=== PATIENT | female | born 1940 | race Caucasian/White ===

== ENCOUNTER 2020-09-03 08:41 | Inpatient (IN) ==
[2020-09-03] MEDS ORDERED: hydroCHLOROthiazide 25 MG TABLET PO PRN (13:54)
[2020-09-03] MEDS: Sucralfate 1 GM TABLET PO SCH ×2 (19:07→20:20)
[2020-09-03] MEDS: *HR* Glimepiride 4 MG TABLET PO SCH (20:19)
[2020-09-03] MEDS: *HR* OxyCODONE/APAP 5/325 TABLET PO PRN (20:19)
[2020-09-03] MEDS: Mirtazapine 15 MG TABLET PO PRN (20:21)
[2020-09-04] MEDS: *HR* OxyCODONE/APAP 5/325 TABLET PO PRN ×2 (03:08→16:10)
[2020-09-04] MEDS: *HR* Enoxaparin 40 MG/0.4 ML SYRINGE SQ SCH (05:09)
[2020-09-04 05:40] LABS: Basophils % 0.2 %; Eosinophils # 0.4 K/mcL (0.0-0.6); Eosinophils % 4.3 %; Hematocrit 27.5 % (35.3-44.9); Hemoglobin 8.8 g/dL (11.5-15.4); Immature Granulocytes % 0.7 % (0-4); Lymphocytes # 2.2 K/mcL (0.6-4.6); Lymphocytes % 23.6 %; Mean Corpuscular Hemoglobin 25.5 pg (28.0-33.3); Mean Corpuscular Volume 79.7 fL (83.0-100.0); Mean Platelet Volume 10.4 fL (9.4-12.4); Monocytes % 11.2 %; Neutrophils # 5.5 K/mcL (1.6-8.9); Platelet Count 340 K/mcL (140-400); Red Blood Count 3.45 M/mcL (3.82-4.97); Red Cell Distribution Width 15.7 % (11.5-14.5); White Blood Count 9.1 K/mcL (4.3-11.1)
[2020-09-04 05:54] LABS: BUN/Creatinine Ratio 20 (6-26); Blood Urea Nitrogen 18 mg/dL (8-23); Calcium 8.3 mg/dL (8.6-10.3); Carbon Dioxide 31 mEq/L (23-29); Chloride 91 mEq/L (98-107); Glucose 206 mg/dL (70-105); Osmolality,Calculated 274 (280-300); Sodium 128 mEq/L (136-145); eGFR For African Americans > 60 (> 60); eGFR For Non-African Americans 59 (> 60)
[2020-09-04 06:06] LABS: Potassium 4.2 mEq/L (3.5-5.1)
[2020-09-04] MEDS: Sucralfate 1 GM TABLET PO SCH ×2 (08:02→20:00)
[2020-09-04] MEDS: VIT A PO SCH (08:10)
[2020-09-04] MEDS: *HR* Metformin 500 MG TABLET PO SCH (08:10)
[2020-09-04] MEDS: Loratadine 10 MG TABLET PO SCH (08:10)
[2020-09-04] MEDS: VIT C PO SCH (08:10)
[2020-09-04] MEDS: COPPER PO SCH (08:10)
[2020-09-04] MEDS: *HR* Glimepiride 4 MG TABLET PO SCH ×2 (08:10→19:57)
[2020-09-04] MEDS: ZINC PO SCH (08:10)
[2020-09-04] MEDS: VIT E PO SCH (08:10)
[2020-09-04] MEDS: Aspirin Enteric Coated 81 MG Tablet PO SCH (08:10)
[2020-09-04] MEDS: polyethylene glycoL 3350 17 GM POWD.PACK PO PRN (18:04)
[2020-09-04] MEDS: Mirtazapine 15 MG TABLET PO PRN (19:57)
[2020-09-05] MEDS: *HR* OxyCODONE/APAP 5/325 TABLET PO PRN ×3 (02:56→22:25)
[2020-09-05] MEDS: *HR* Enoxaparin 40 MG/0.4 ML SYRINGE SQ SCH (05:32)
[2020-09-05 06:09] LABS: BUN/Creatinine Ratio 18 (6-26); Blood Urea Nitrogen 17 mg/dL (8-23); Calcium 8.3 mg/dL (8.6-10.3); Carbon Dioxide 33 mEq/L (23-29); Chloride 91 mEq/L (98-107); Glucose 223 mg/dL (70-105); Osmolality,Calculated 276 (280-300); Potassium 4.4 mEq/L (3.5-5.1); Sodium 129 mEq/L (136-145); eGFR For African Americans > 60 (> 60); eGFR For Non-African Americans 59 (> 60)
[2020-09-05] MEDS: *HR* Metformin 500 MG TABLET PO SCH (08:40)
[2020-09-05] MEDS: *HR* Glimepiride 4 MG TABLET PO SCH ×2 (08:40→22:25)
[2020-09-05] MEDS: Sucralfate 1 GM TABLET PO SCH ×2 (08:41→22:28)
[2020-09-05] MEDS: ZINC PO SCH ×2 (08:41→22:28)
[2020-09-05] MEDS: Aspirin Enteric Coated 81 MG Tablet PO SCH (08:41)
[2020-09-05] MEDS: VIT C PO SCH ×2 (08:41→22:28)
[2020-09-05] MEDS: COPPER PO SCH ×2 (08:41→22:28)
[2020-09-05] MEDS: VIT A PO SCH ×2 (08:41→22:28)
[2020-09-05] MEDS: VIT E PO SCH ×2 (08:41→22:28)
[2020-09-05] MEDS: Loratadine 10 MG TABLET PO SCH (08:41)
[2020-09-05] MEDS ORDERED: *HR* Dextrose 50 % in Water (Vial) 50 ML VIAL IVP PRN (11:33)
[2020-09-05] MEDS ORDERED: D5% in Water 1,000 ML IVC PRN (11:33)
[2020-09-05] MEDS ORDERED: Dextrose Gel 15 GM/37.5 ML TUBE PO PRN ×2 (11:33)
[2020-09-05] MEDS ORDERED: Bisacodyl 10 MG RECTAL SUPPOSITORY RC PRN (12:18)
[2020-09-05] MEDS: Insulin LISPRO 300 UNITS/3 ML VIAL SUBQ SCH ×2 (12:21→17:07)
[2020-09-05] MEDS ORDERED: Insulin LISPRO 300 UNITS/3 ML VIAL SUBQ SCH (21:00)
[2020-09-05] MEDS: Mirtazapine 15 MG TABLET PO PRN (22:24)
[2020-09-05] MEDS: Nystatin POWDER 30 GM BOTTLE TP SCH (22:30)
[2020-09-06] MEDS: *HR* OxyCODONE/APAP 5/325 TABLET PO PRN ×3 (04:15→16:55)
[2020-09-06] MEDS: *HR* Enoxaparin 40 MG/0.4 ML SYRINGE SQ SCH (04:17)
[2020-09-06 05:04] LABS: Basophils % 0.3 %; Eosinophils # 0.7 K/mcL (0.0-0.6); Eosinophils % 6.4 %; Hematocrit 27.5 % (35.3-44.9); Hemoglobin 8.7 g/dL (11.5-15.4); Immature Granulocytes % 0.7 % (0-4); Lymphocytes # 3.5 K/mcL (0.6-4.6); Lymphocytes % 30.2 %; Mean Corpuscular HGB Conc 31.6 g/dL (31.6-35.5); Mean Corpuscular Hemoglobin 25.7 pg (28.0-33.3); Mean Corpuscular Volume 81.4 fL (83.0-100.0); Monocytes # 1.1 K/mcL (0.0-1.3); Monocytes % 9.8 %; Neutrophils # 6.1 K/mcL (1.6-8.9); Platelet Count 362 K/mcL (140-400); Red Blood Count 3.38 M/mcL (3.82-4.97); Segmented Neutrophils % 52.6 %; White Blood Count 11.5 K/mcL (4.3-11.1)
[2020-09-06 05:18] LABS: BUN/Creatinine Ratio 18 (6-26); Blood Urea Nitrogen 17 mg/dL (8-23); Calcium 8.6 mg/dL (8.6-10.3); Carbon Dioxide 33 mEq/L (23-29); Chloride 90 mEq/L (98-107); Glucose 185 mg/dL (70-105); Osmolality,Calculated 272 (280-300); Potassium 4.3 mEq/L (3.5-5.1); Sodium 128 mEq/L (136-145); eGFR For African Americans > 60 (> 60); eGFR For Non-African Americans 57 (> 60)
[2020-09-06] MEDS: *HR* Glimepiride 4 MG TABLET PO SCH ×2 (07:44→20:21)
[2020-09-06] MEDS: Sucralfate 1 GM TABLET PO SCH ×2 (07:44→20:22)
[2020-09-06] MEDS: Aspirin Enteric Coated 81 MG Tablet PO SCH (07:44)
[2020-09-06] MEDS: *HR* Metformin 500 MG TABLET PO SCH ×2 (07:44→16:55)
[2020-09-06] MEDS: Loratadine 10 MG TABLET PO SCH (07:44)
[2020-09-06] MEDS: ZINC PO SCH ×2 (07:45→20:22)
[2020-09-06] MEDS: VIT E PO SCH ×2 (07:45→20:22)
[2020-09-06] MEDS: VIT A PO SCH ×2 (07:45→20:22)
[2020-09-06] MEDS: COPPER PO SCH ×2 (07:45→20:22)
[2020-09-06] MEDS: VIT C PO SCH ×2 (07:45→20:22)
[2020-09-06] MEDS: Insulin LISPRO 300 UNITS/3 ML VIAL SUBQ SCH ×3 (07:47→20:23)
[2020-09-06] MEDS: Nystatin POWDER 30 GM BOTTLE TP SCH ×2 (10:46→20:22)
[2020-09-06] MEDS: Mirtazapine 15 MG TABLET PO PRN (22:33)
[2020-09-07] MEDS: *HR* OxyCODONE/APAP 5/325 TABLET PO PRN ×3 (03:56→21:52)
[2020-09-07] MEDS: *HR* Enoxaparin 40 MG/0.4 ML SYRINGE SQ SCH (03:57)
[2020-09-07] MEDS: Insulin LISPRO 300 UNITS/3 ML VIAL SUBQ SCH ×5 (07:30→19:37)
[2020-09-07] MEDS: Aspirin Enteric Coated 81 MG Tablet PO SCH (08:03)
[2020-09-07] MEDS: Sucralfate 1 GM TABLET PO SCH ×2 (08:03→19:36)
[2020-09-07] MEDS: *HR* Glimepiride 4 MG TABLET PO SCH ×2 (08:04→19:36)
[2020-09-07] MEDS: Loratadine 10 MG TABLET PO SCH (08:04)
[2020-09-07] MEDS: Nystatin POWDER 30 GM BOTTLE TP SCH ×2 (08:06→21:53)
[2020-09-07] MEDS: *HR* Metformin 500 MG TABLET PO SCH ×2 (08:07→17:45)
[2020-09-07] MEDS: COPPER PO SCH ×2 (08:07→19:39)
[2020-09-07] MEDS: VIT A PO SCH ×2 (08:07→19:39)
[2020-09-07] MEDS: ZINC PO SCH ×2 (08:07→19:39)
[2020-09-07] MEDS: VIT E PO SCH ×2 (08:07→19:39)
[2020-09-07] MEDS: VIT C PO SCH ×2 (08:07→19:39)
[2020-09-07] MEDS: Mirtazapine 15 MG TABLET PO PRN (21:52)
[2020-09-08] MEDS: *HR* Enoxaparin 40 MG/0.4 ML SYRINGE SQ SCH (06:12)
[2020-09-08] MEDS: *HR* OxyCODONE/APAP 5/325 TABLET PO PRN ×2 (06:13→21:56)
[2020-09-08] MEDS: Insulin LISPRO 300 UNITS/3 ML VIAL SUBQ SCH ×4 (08:02→20:33)
[2020-09-08] MEDS: Aspirin Enteric Coated 81 MG Tablet PO SCH (08:03)
[2020-09-08] MEDS: Nystatin POWDER 30 GM BOTTLE TP SCH ×2 (08:05→21:58)
[2020-09-08] MEDS: *HR* Metformin 500 MG TABLET PO SCH ×2 (08:05→15:59)
[2020-09-08] MEDS: Loratadine 10 MG TABLET PO SCH (08:05)
[2020-09-08] MEDS: *HR* Glimepiride 4 MG TABLET PO SCH ×2 (08:05→20:33)
[2020-09-08] MEDS: Sucralfate 1 GM TABLET PO SCH ×2 (08:05→20:33)
[2020-09-08] MEDS: VIT C PO SCH ×2 (08:06→20:34)
[2020-09-08] MEDS: ZINC PO SCH ×2 (08:06→20:34)
[2020-09-08] MEDS: VIT A PO SCH ×2 (08:06→20:34)
[2020-09-08] MEDS: COPPER PO SCH ×2 (08:06→20:34)
[2020-09-08] MEDS: VIT E PO SCH ×2 (08:06→20:34)
[2020-09-08] MEDS: Mirtazapine 15 MG TABLET PO PRN (21:57)
[2020-09-09] MEDS: *HR* Enoxaparin 40 MG/0.4 ML SYRINGE SQ SCH (05:32)
[2020-09-09] MEDS: Sucralfate 1 GM TABLET PO SCH ×4 (05:32→19:50)
[2020-09-09 06:13] LABS: Hematocrit 27.1 % (35.3-44.9); Hemoglobin 8.4 g/dL (11.5-15.4); Mean Corpuscular Hemoglobin 25.2 pg (28.0-33.3); Mean Corpuscular Volume 81.4 fL (83.0-100.0); Mean Platelet Volume 9.9 fL (9.4-12.4); Platelet Count 406 K/mcL (140-400); Red Blood Count 3.33 M/mcL (3.82-4.97); Red Cell Distribution Width 16.4 % (11.5-14.5); White Blood Count 10.7 K/mcL (4.3-11.1)
[2020-09-09 06:48] LABS: Alanine Aminotransferase 62 Units/L (7-52); Albumin 3.2 g/dL (3.5-5.7); Albumin/Globulin Ratio 1.3 (1.1-2.2); Alkaline Phosphatase 105 Units/L (34-104); Aspartate Amino Transferase 13 Units/L (13-39); BUN/Creatinine Ratio 16 (6-26); Bilirubin,Total 0.8 mg/dL (0.3-1.0); Blood Urea Nitrogen 14 mg/dL (8-23); Calcium 8.5 mg/dL (8.6-10.3); Carbon Dioxide 30 mEq/L (23-29); Chloride 91 mEq/L (98-107); Globulin 2.5 g/dL (2.4-3.5); Glucose 168 mg/dL (70-105); Magnesium 1.6 mg/dL (1.6-2.6); Osmolality,Calculated 270 (280-300); Potassium 3.9 mEq/L (3.5-5.1); Sodium 128 mEq/L (136-145); Total Protein 5.7 g/dL (6.4-8.9); eGFR For African Americans > 60 (> 60); eGFR For Non-African Americans > 60 (> 60)
[2020-09-09] MEDS: Aspirin Enteric Coated 81 MG Tablet PO SCH (07:49)
[2020-09-09] MEDS: *HR* Metformin 500 MG TABLET PO SCH ×2 (07:49→17:33)
[2020-09-09] MEDS: ZINC PO SCH ×2 (07:50→19:50)
[2020-09-09] MEDS: Loratadine 10 MG TABLET PO SCH (07:50)
[2020-09-09] MEDS: Nystatin POWDER 30 GM BOTTLE TP SCH ×2 (07:50→23:49)
[2020-09-09] MEDS: COPPER PO SCH ×2 (07:50→19:50)
[2020-09-09] MEDS: VIT E PO SCH ×2 (07:50→19:50)
[2020-09-09] MEDS: *HR* Glimepiride 4 MG TABLET PO SCH ×2 (07:50→19:50)
[2020-09-09] MEDS: VIT C PO SCH ×2 (07:50→19:50)
[2020-09-09] MEDS: VIT A PO SCH ×2 (07:50→19:50)
[2020-09-09] MEDS: Insulin LISPRO 300 UNITS/3 ML VIAL SUBQ SCH ×4 (07:50→23:49)
[2020-09-09] MEDS: Mirtazapine 15 MG TABLET PO PRN (23:48)
[2020-09-09] MEDS: *HR* OxyCODONE/APAP 5/325 TABLET PO PRN (23:48)
[2020-09-10] MEDS: Sucralfate 1 GM TABLET PO SCH ×4 (06:22→21:43)
[2020-09-10] MEDS: *HR* Enoxaparin 40 MG/0.4 ML SYRINGE SQ SCH (06:28)
[2020-09-10] MEDS: Insulin LISPRO 300 UNITS/3 ML VIAL SUBQ SCH ×4 (08:59→21:46)
[2020-09-10] MEDS: *HR* Metformin 500 MG TABLET PO SCH ×2 (09:22→17:43)
[2020-09-10] MEDS: Loratadine 10 MG TABLET PO SCH (09:22)
[2020-09-10] MEDS: VIT A PO SCH ×2 (09:23→21:44)
[2020-09-10] MEDS: COPPER PO SCH ×2 (09:23→21:44)
[2020-09-10] MEDS: *HR* Glimepiride 4 MG TABLET PO SCH ×2 (09:23→21:38)
[2020-09-10] MEDS: VIT E PO SCH ×2 (09:23→21:44)
[2020-09-10] MEDS: Nystatin POWDER 30 GM BOTTLE TP SCH ×2 (09:23→21:48)
[2020-09-10] MEDS: ZINC PO SCH ×2 (09:23→21:44)
[2020-09-10] MEDS: VIT C PO SCH ×2 (09:23→21:44)
[2020-09-10] MEDS: Aspirin Enteric Coated 81 MG Tablet PO SCH (09:23)
[2020-09-10] MEDS: *HR* OxyCODONE/APAP 5/325 TABLET PO PRN (21:42)
[2020-09-10] MEDS: Mirtazapine 15 MG TABLET PO PRN (22:05)
[2020-09-11] MEDS: *HR* Enoxaparin 40 MG/0.4 ML SYRINGE SQ SCH (06:30)
[2020-09-11] MEDS: Sucralfate 1 GM TABLET PO SCH ×4 (06:30→20:17)
[2020-09-11] MEDS: Aspirin Enteric Coated 81 MG Tablet PO SCH (09:19)
[2020-09-11] MEDS: *HR* Glimepiride 4 MG TABLET PO SCH ×2 (09:19→20:17)
[2020-09-11] MEDS: Loratadine 10 MG TABLET PO SCH (09:19)
[2020-09-11] MEDS: *HR* Metformin 500 MG TABLET PO SCH ×2 (09:19→18:22)
[2020-09-11] MEDS: Insulin LISPRO 300 UNITS/3 ML VIAL SUBQ SCH ×4 (09:20→20:17)
[2020-09-11] MEDS: Nystatin POWDER 30 GM BOTTLE TP SCH ×2 (09:20→23:22)
[2020-09-11] MEDS: ZINC PO SCH ×2 (09:22→20:17)
[2020-09-11] MEDS: COPPER PO SCH ×2 (09:22→20:17)
[2020-09-11] MEDS: VIT E PO SCH ×2 (09:22→20:17)
[2020-09-11] MEDS: VIT C PO SCH ×2 (09:22→20:17)
[2020-09-11] MEDS: VIT A PO SCH ×2 (09:22→20:17)
[2020-09-11] MEDS: Mirtazapine 15 MG TABLET PO PRN (23:05)
[2020-09-11] MEDS: *HR* OxyCODONE/APAP 5/325 TABLET PO PRN (23:05)
[2020-09-12] MEDS: *HR* Enoxaparin 40 MG/0.4 ML SYRINGE SQ SCH (04:18)
[2020-09-12] MEDS: Sucralfate 1 GM TABLET PO SCH ×4 (04:18→19:47)
[2020-09-12] MEDS: *HR* Metformin 500 MG TABLET PO SCH ×2 (07:55→17:34)
[2020-09-12] MEDS: Loratadine 10 MG TABLET PO SCH (07:55)
[2020-09-12] MEDS: Aspirin Enteric Coated 81 MG Tablet PO SCH (07:55)
[2020-09-12] MEDS: *HR* Glimepiride 4 MG TABLET PO SCH ×2 (07:56→19:45)
[2020-09-12] MEDS: VIT A PO SCH ×2 (07:56→19:46)
[2020-09-12] MEDS: ZINC PO SCH ×2 (07:56→19:46)
[2020-09-12] MEDS: VIT C PO SCH ×2 (07:56→19:46)
[2020-09-12] MEDS: VIT E PO SCH ×2 (07:56→19:46)
[2020-09-12] MEDS: Nystatin POWDER 30 GM BOTTLE TP SCH ×2 (07:56→22:31)
[2020-09-12] MEDS: COPPER PO SCH ×2 (07:56→19:46)
[2020-09-12] MEDS: Insulin LISPRO 300 UNITS/3 ML VIAL SUBQ SCH ×4 (07:57→22:17)
[2020-09-12] MEDS: Mirtazapine 15 MG TABLET PO PRN (22:16)
[2020-09-13] MEDS: *HR* Enoxaparin 40 MG/0.4 ML SYRINGE SQ SCH (05:11)
[2020-09-13] MEDS: Sucralfate 1 GM TABLET PO SCH ×3 (05:11→20:18)
[2020-09-13] MEDS: *HR* Metformin 500 MG TABLET PO SCH ×2 (07:43→17:08)
[2020-09-13] MEDS: ZINC PO SCH ×2 (07:44→20:17)
[2020-09-13] MEDS: *HR* Glimepiride 4 MG TABLET PO SCH ×2 (07:44→20:17)
[2020-09-13] MEDS: VIT E PO SCH ×2 (07:44→20:17)
[2020-09-13] MEDS: VIT C PO SCH ×2 (07:44→20:17)
[2020-09-13] MEDS: COPPER PO SCH ×2 (07:44→20:17)
[2020-09-13] MEDS: Loratadine 10 MG TABLET PO SCH (07:44)
[2020-09-13] MEDS: VIT A PO SCH ×2 (07:44→20:17)
[2020-09-13] MEDS: Aspirin Enteric Coated 81 MG Tablet PO SCH (07:44)
[2020-09-13] MEDS: Insulin LISPRO 300 UNITS/3 ML VIAL SUBQ SCH ×4 (07:51→20:18)
[2020-09-13] MEDS: Nystatin POWDER 30 GM BOTTLE TP SCH ×2 (07:52→23:02)
[2020-09-13] MEDS: polyethylene glycoL 3350 17 GM POWD.PACK PO PRN (12:36)
[2020-09-13] MEDS: Mirtazapine 15 MG TABLET PO PRN (23:02)
[2020-09-14] MEDS: *HR* Enoxaparin 40 MG/0.4 ML SYRINGE SQ SCH (05:56)
[2020-09-14] MEDS: Sucralfate 1 GM TABLET PO SCH ×4 (05:56→21:23)
[2020-09-14] MEDS: Loratadine 10 MG TABLET PO SCH (07:56)
[2020-09-14] MEDS: Aspirin Enteric Coated 81 MG Tablet PO SCH (07:56)
[2020-09-14] MEDS: *HR* Metformin 500 MG TABLET PO SCH ×2 (07:56→16:58)
[2020-09-14] MEDS: *HR* Glimepiride 4 MG TABLET PO SCH ×2 (07:56→21:22)
[2020-09-14] MEDS: Nystatin POWDER 30 GM BOTTLE TP SCH ×3 (07:58→21:25)
[2020-09-14] MEDS: VIT A PO SCH ×2 (07:58→21:23)
[2020-09-14] MEDS: VIT C PO SCH ×2 (07:58→21:23)
[2020-09-14] MEDS: VIT E PO SCH ×2 (07:58→21:23)
[2020-09-14] MEDS: ZINC PO SCH ×2 (07:58→21:23)
[2020-09-14] MEDS: COPPER PO SCH ×2 (07:58→21:23)
[2020-09-14] MEDS: Insulin LISPRO 300 UNITS/3 ML VIAL SUBQ SCH ×4 (08:00→21:23)
[2020-09-14 14:22] LABS: Basophils % 0.2 %; Eosinophils # 0.4 K/mcL (0.0-0.6); Eosinophils % 3.3 %; Hematocrit 28.2 % (35.3-44.9); Hemoglobin 8.9 g/dL (11.5-15.4); Immature Granulocytes % 0.3 % (0-4); Lymphocytes # 2.2 K/mcL (0.6-4.6); Lymphocytes % 20.7 %; Mean Corpuscular HGB Conc 31.6 g/dL (31.6-35.5); Mean Corpuscular Hemoglobin 25.6 pg (28.0-33.3); Mean Corpuscular Volume 81.3 fL (83.0-100.0); Mean Platelet Volume 9.1 fL (9.4-12.4); Monocytes # 0.8 K/mcL (0.0-1.3); Monocytes % 7.5 %; Neutrophils # 7.3 K/mcL (1.6-8.9); Platelet Count 492 K/mcL (140-400); Red Blood Count 3.47 M/mcL (3.82-4.97); Red Cell Distribution Width 16.2 % (11.5-14.5); White Blood Count 10.7 K/mcL (4.3-11.1)
[2020-09-14 14:34] LABS: BUN/Creatinine Ratio 20 (6-26); Blood Urea Nitrogen 17 mg/dL (8-23); Calcium 8.8 mg/dL (8.6-10.3); Carbon Dioxide 30 mEq/L (23-29); Chloride 91 mEq/L (98-107); Glucose 186 mg/dL (70-105); Osmolality,Calculated 272 (280-300); Potassium 4.3 mEq/L (3.5-5.1); Sodium 128 mEq/L (136-145); eGFR For African Americans > 60 (> 60); eGFR For Non-African Americans > 60 (> 60)
[2020-09-14] MEDS: Mirtazapine 15 MG TABLET PO PRN (21:23)
[2020-09-14] MEDS: *HR* OxyCODONE/APAP 5/325 TABLET PO PRN (21:46)
[2020-09-15] MEDS: *HR* Enoxaparin 40 MG/0.4 ML SYRINGE SQ SCH (05:47)
[2020-09-15] MEDS: Sucralfate 1 GM TABLET PO SCH ×2 (05:48→12:28)
[2020-09-15 07:03] VITALS: BP 142/84
[2020-09-15] MEDS: Insulin LISPRO 300 UNITS/3 ML VIAL SUBQ SCH ×2 (08:12→12:28)
[2020-09-15] MEDS: *HR* Metformin 500 MG TABLET PO SCH (08:14)
[2020-09-15] MEDS: *HR* Glimepiride 4 MG TABLET PO SCH (08:14)
[2020-09-15] MEDS: Aspirin Enteric Coated 81 MG Tablet PO SCH (08:14)
[2020-09-15] MEDS: Loratadine 10 MG TABLET PO SCH (08:15)
[2020-09-15] MEDS: VIT C PO SCH (08:16)
[2020-09-15] MEDS: ZINC PO SCH (08:16)
[2020-09-15] MEDS: VIT E PO SCH (08:16)
[2020-09-15] MEDS: COPPER PO SCH (08:16)
[2020-09-15] MEDS: VIT A PO SCH (08:16)
[2020-09-15] MEDS: Nystatin POWDER 30 GM BOTTLE TP SCH (08:16)
== END 2020-09-15 13:45 | disposition home health service (06) | DRG 560 ==
LOC: INPGRE 18:01
PROVIDERS: ADMIT Family Medicine; ATTEND Family Medicine

== ENCOUNTER 2020-10-19 10:52 | Observation (INO) ==
[2020-10-19] MEDS ORDERED: Furosemide 20 MG/2 ML VIAL IVP ONE (11:18)
[2020-10-19 11:24] LABS: Basophils % 0.2 %; Eosinophils # 0.3 K/mcL (0.0-0.6); Eosinophils % 3.5 %; Hematocrit 36.3 % (35.3-44.9); Hemoglobin 10.9 g/dL (11.5-15.4); Immature Granulocytes % 0.2 % (0-4); Lymphocytes % 22.8 %; Mean Corpuscular Hemoglobin 24.9 pg (28.0-33.3); Mean Corpuscular Volume 83.1 fL (83.0-100.0); Monocytes # 0.7 K/mcL (0.0-1.3); Monocytes % 8.1 %; Neutrophils # 5.6 K/mcL (1.6-8.9); Platelet Count 384 K/mcL (140-400); Red Blood Count 4.37 M/mcL (3.82-4.97); Segmented Neutrophils % 65.2 %; White Blood Count 8.6 K/mcL (4.3-11.1)
[2020-10-19 11:30] LABS: INR 1.4; Prothrombin Time 15.5 Seconds (9.4-12.1)
[2020-10-19 11:33] LABS: Activated Partial Thrombo Time 34.5 Seconds (26.0-36.0)
[2020-10-19 11:39] LABS: BUN/Creatinine Ratio 15 (6-26); Blood Urea Nitrogen 14 mg/dL (8-23); Calcium 8.7 mg/dL (8.6-10.3); Carbon Dioxide 28 mEq/L (23-29); Chloride 98 mEq/L (98-107); Glucose 136 mg/dL (70-105); Osmolality,Calculated 285 (280-300); Potassium 4.2 mEq/L (3.5-5.1); Sodium 136 mEq/L (136-145); eGFR For African Americans > 60 (> 60); eGFR For Non-African Americans 58 (> 60)
[2020-10-19 11:43] LABS: Troponin I < 0.03 ng/mL (< 0.04)
[2020-10-19] MEDS ORDERED: Sucralfate 1 GM TABLET PO PRN (16:06)
[2020-10-19] MEDS ORDERED: Dextrose Gel 15 GM/37.5 ML TUBE PO PRN ×2 (16:16)
[2020-10-19] MEDS ORDERED: *HR* Dextrose 50 % in Water (Vial) 50 ML VIAL IVP PRN (16:16)
[2020-10-19] MEDS ORDERED: D5% in Water 1,000 ML IVC PRN (16:16)
[2020-10-19] MEDS: Insulin LISPRO 300 UNITS/3 ML VIAL SUBQ SCH ×2 (18:20→20:45)
[2020-10-19] MEDS: Furosemide 20 MG TABLET PO SCH (18:41)
[2020-10-19] MEDS: *HR* Glimepiride 4 MG TABLET PO SCH (18:41)
[2020-10-19] MEDS: Apixaban 5 MG TABLET PO SCH ×2 (20:37→20:38)
[2020-10-19] MEDS: 0.9 % Sodium Chloride 250 ML IVC SCH (20:38)
[2020-10-19] MEDS: DilTIAZem 50 MG in 0.9 % Sodium Chloride 40 ML IVC SCH (20:39)
[2020-10-19] MEDS: Mirtazapine 15 MG TABLET PO PRN (22:11)
[2020-10-20] MEDS ORDERED: DilTIAZem 50 MG in 0.9 % Sodium Chloride 40 ML IVC SCH (03:00)
[2020-10-20 04:57] LABS: Hematocrit 34.5 % (35.3-44.9); Hemoglobin 10.6 g/dL (11.5-15.4); Mean Corpuscular HGB Conc 30.7 g/dL (31.6-35.5); Mean Corpuscular Hemoglobin 25.3 pg (28.0-33.3); Mean Corpuscular Volume 82.3 fL (83.0-100.0); Mean Platelet Volume 9.2 fL (9.4-12.4); Platelet Count 372 K/mcL (140-400); Red Blood Count 4.19 M/mcL (3.82-4.97); Red Cell Distribution Width 16.1 % (11.5-14.5); White Blood Count 7.2 K/mcL (4.3-11.1)
[2020-10-20 05:13] LABS: BUN/Creatinine Ratio 14 (6-26); Blood Urea Nitrogen 14 mg/dL (8-23); Calcium 8.9 mg/dL (8.6-10.3); Carbon Dioxide 29 mEq/L (23-29); Chloride 97 mEq/L (98-107); Glucose 158 mg/dL (70-105); Osmolality,Calculated 286 (280-300); Potassium 3.7 mEq/L (3.5-5.1); Sodium 136 mEq/L (136-145); eGFR For African Americans > 60 (> 60); eGFR For Non-African Americans 52 (> 60)
[2020-10-20 05:45] LABS: Magnesium 1.4 mg/dL (1.6-2.6)
[2020-10-20 06:13] LABS: Thyroid Stimulating Hormone 2.228 mcIU/mL (0.340-5.600)
[2020-10-20] MEDS: 0.9 % Sodium Chloride 250 ML IVC SCH (06:36)
[2020-10-20] MEDS: DilTIAZem 50 MG in 0.9 % Sodium Chloride 40 ML IVC SCH (06:39)
[2020-10-20] MEDS: Insulin LISPRO 300 UNITS/3 ML VIAL SUBQ SCH ×4 (08:16→22:05)
[2020-10-20] MEDS: *HR* Metformin 500 MG TABLET PO SCH (08:17)
[2020-10-20] MEDS: Furosemide 20 MG TABLET PO SCH ×2 (08:17→17:49)
[2020-10-20] MEDS: Isosorbide MONOnitrate (24 HR) 30 MG TAB.ER.24H PO SCH (08:17)
[2020-10-20] MEDS: Apixaban 5 MG TABLET PO SCH ×2 (08:17→22:00)
[2020-10-20] MEDS: Aspirin Enteric Coated 81 MG Tablet PO SCH (08:18)
[2020-10-20] MEDS: Loratadine 10 MG TABLET PO SCH (08:18)
[2020-10-20] MEDS: *HR* Glimepiride 4 MG TABLET PO SCH ×2 (08:18→17:49)
[2020-10-20 09:05] LABS: Estimated Average Glucose 131 mg/dl; Hemoglobin A1C 6.2 %
[2020-10-20] MEDS: *HR* OxyCODONE/APAP 5/325 TABLET PO PRN (22:02)
[2020-10-20] MEDS: Mirtazapine 15 MG TABLET PO PRN (22:03)
[2020-10-21] MEDS: Isosorbide MONOnitrate (24 HR) 30 MG TAB.ER.24H PO SCH (10:06)
[2020-10-21] MEDS: Apixaban 5 MG TABLET PO SCH ×2 (10:06→21:31)
[2020-10-21] MEDS: Aspirin Enteric Coated 81 MG Tablet PO SCH (10:06)
[2020-10-21] MEDS: *HR* Metformin 500 MG TABLET PO SCH (10:06)
[2020-10-21] MEDS: Loratadine 10 MG TABLET PO SCH (10:06)
[2020-10-21] MEDS: *HR* Glimepiride 4 MG TABLET PO SCH ×2 (10:06→18:50)
[2020-10-21] MEDS: Furosemide 20 MG TABLET PO SCH ×2 (10:07→18:50)
[2020-10-21] MEDS: Insulin LISPRO 300 UNITS/3 ML VIAL SUBQ SCH ×4 (10:09→21:32)
[2020-10-21 10:34] LABS: Hematocrit 34.1 % (35.3-44.9); Hemoglobin 10.5 g/dL (11.5-15.4); Mean Corpuscular HGB Conc 30.8 g/dL (31.6-35.5); Mean Corpuscular Hemoglobin 25.1 pg (28.0-33.3); Mean Corpuscular Volume 81.6 fL (83.0-100.0); Mean Platelet Volume 9.4 fL (9.4-12.4); Platelet Count 377 K/mcL (140-400); Red Blood Count 4.18 M/mcL (3.82-4.97); Red Cell Distribution Width 15.9 % (11.5-14.5); White Blood Count 7.5 K/mcL (4.3-11.1)
[2020-10-21 11:08] LABS: Albumin 3.8 g/dL (3.5-5.7); Albumin/Globulin Ratio 1.7 (1.1-2.2); Bilirubin,Total 0.5 mg/dL (0.3-1.0); Calcium 8.3 mg/dL (8.6-10.3); Globulin 2.2 g/dL (2.4-3.5); Magnesium 1.6 mg/dL (1.6-2.6); Potassium 3.7 mEq/L (3.5-5.1)
[2020-10-22] MEDS: Mirtazapine 15 MG TABLET PO PRN (00:31)
[2020-10-22] MEDS: *HR* OxyCODONE/APAP 5/325 TABLET PO PRN (00:33)
[2020-10-22] MEDS: *HR* Metformin 500 MG TABLET PO SCH (10:08)
[2020-10-22] MEDS: *HR* Glimepiride 4 MG TABLET PO SCH (10:08)
[2020-10-22] MEDS: Aspirin Enteric Coated 81 MG Tablet PO SCH (10:08)
[2020-10-22] MEDS: Insulin LISPRO 300 UNITS/3 ML VIAL SUBQ SCH ×2 (10:09→14:37)
[2020-10-22] MEDS: Loratadine 10 MG TABLET PO SCH (10:09)
[2020-10-22] MEDS: Apixaban 5 MG TABLET PO SCH (10:09)
[2020-10-22] MEDS: Isosorbide MONOnitrate (24 HR) 30 MG TAB.ER.24H PO SCH (10:09)
[2020-10-22] MEDS: Furosemide 20 MG TABLET PO SCH (10:09)
[2020-10-22 11:38] VITALS: BP 126/87
[2020-10-22] MEDS ORDERED: DilTIAZem CD (24hr) 240 MG CAP.ER.24H PO SCH (14:00)
== END 2020-10-22 15:20 | disposition home health service (06) ==
LOC: EMEROOGRE 10:52 → INPGRE 10:52
PROVIDERS: ADMIT Family Medicine; ATTEND Family Medicine

== ENCOUNTER 2021-02-14 12:20 | Observation (INO) ==
[2021-02-14 13:15] LABS: Basophils % 0.2 %; Eosinophils # 0.2 K/mcL (0.0-0.6); Eosinophils % 1.3 %; Hematocrit 31.8 % (35.3-44.9); Hemoglobin 9.3 g/dL (11.5-15.4); Immature Granulocytes % 0.3 % (0-4); Lymphocytes # 1.4 K/mcL (0.6-4.6); Mean Corpuscular HGB Conc 29.2 g/dL (31.6-35.5); Mean Corpuscular Hemoglobin 22.6 pg (28.0-33.3); Mean Corpuscular Volume 77.2 fL (83.0-100.0); Mean Platelet Volume 9.5 fL (9.4-12.4); Monocytes # 1.1 K/mcL (0.0-1.3); Monocytes % 9.3 %; Platelet Count 331 K/mcL (140-400); Red Blood Count 4.12 M/mcL (3.82-4.97); Red Cell Distribution Width 17.8 % (11.5-14.5); Segmented Neutrophils % 76.9 %; White Blood Count 11.7 K/mcL (4.3-11.1)
[2021-02-14 13:33] LABS: Alanine Aminotransferase 7 Units/L (7-52); Albumin 3.7 g/dL (3.5-5.7); Albumin/Globulin Ratio 1.5 (1.1-2.2); Alkaline Phosphatase 77 Units/L (34-104); Aspartate Amino Transferase 6 Units/L (13-39); BUN/Creatinine Ratio 20 (6-26); Bilirubin,Total 0.6 mg/dL (0.3-1.0); Blood Urea Nitrogen 20 mg/dL (8-23); Calcium 8.7 mg/dL (8.6-10.3); Carbon Dioxide 32 mEq/L (23-29); Chloride 98 mEq/L (98-107); Globulin 2.5 g/dL (2.4-3.5); Glucose 182 mg/dL (70-105); Osmolality,Calculated 289 (280-300); Potassium 4.5 mEq/L (3.5-5.1); Sodium 136 mEq/L (136-145); Total Protein 6.2 g/dL (6.4-8.9); eGFR For African Americans > 60 (> 60); eGFR For Non-African Americans 54 (> 60)
[2021-02-14] MEDS ORDERED: Furosemide 40 MG/4 ML VIAL IVP ONE (13:37)
[2021-02-14 14:53] LABS: Bilirubin,Urine Negative (Negative); Blood,Urine Negative (Negative); Clarity,Urine Clear (Clear); Color,Urine Yellow (Yellow); Glucose,Urine (UA) Normal (Normal); Ketones,Urine Negative (Negative); Leukocyte Esterase,Urine Negative (Negative); Nitrite,Urine Negative (Negative); PH,Urine 5.5 pH Units (5.0-8.0); Protein,Urine 30 mg/dL (Neg-Trace); Urobilinogen,Urine Normal (Normal)
[2021-02-14 14:54] LABS: Squamous Epithelial Cell,Urine Few per hpf (None-Few); WBC,Urine 0-3 per hpf (0-3)
[2021-02-14] MEDS ORDERED: Melatonin 3 MG TABLET PO PRN (17:00)
[2021-02-14] MEDS ORDERED: *HR* HYDROcodone/Acet 5/325 mg TABLET PO PRN (17:00)
[2021-02-14] MEDS ORDERED: Ondansetron ODT 4 MG TAB.RAPDIS SL PRN (17:00)
[2021-02-14] MEDS ORDERED: Mag Hydrox/Al Hydrox/Simeth 30 ML UDC PO PRN (17:00)
[2021-02-14] MEDS ORDERED: MOM Conc 10 ML UD.LIQ PO PRN (17:00)
[2021-02-14] MEDS ORDERED: Naloxone 0.4 MG/ML INJ IVP PRN (17:00)
[2021-02-14] MEDS ORDERED: Acetaminophen 325 MG TABLET PO PRN (17:00)
[2021-02-14] MEDS ORDERED: Sucralfate 1 GM TABLET PO PRN (17:23)
[2021-02-14] MEDS ORDERED: Dextrose Gel 15 GM/37.5 ML TUBE PO PRN ×2 (17:29)
[2021-02-14] MEDS ORDERED: D5% in Water 1,000 ML IVC PRN (17:29)
[2021-02-14] MEDS ORDERED: *HR* Dextrose 50 % in Water (Vial) 50 ML VIAL IVP PRN (17:29)
[2021-02-14] MEDS ORDERED: Perflutren Lipid Microsphere 1.3 ML in 0.9 % Sodium Chloride 8.7 ML IVP PRN (17:32)
[2021-02-14] MEDS ORDERED: DilTIAZem CD (24hr) 240 MG CAP.ER.24H PO SCH (18:00)
[2021-02-14] MEDS ORDERED: Mirtazapine 15 MG TABLET PO PRN (18:59)
[2021-02-14] MEDS ORDERED: Apixaban 5 MG TABLET PO SCH (21:00)
[2021-02-14] MEDS: Furosemide 40 MG/4 ML VIAL IVP SCH (21:46)
[2021-02-14] MEDS: Isosorbide MONOnitrate (24 HR) 30 MG TAB.ER.24H PO SCH (21:48)
[2021-02-14] MEDS: *HR* Glimepiride 4 MG TABLET PO SCH (21:49)
[2021-02-14] MEDS: *HR* Metformin 500 MG TABLET PO SCH (21:49)
[2021-02-14] MEDS: Apixaban 5 MG TABLET PO SCH (21:49)
[2021-02-14] MEDS: Insulin LISPRO 300 UNITS/3 ML VIAL SUBQ SCH (21:49)
[2021-02-14] MEDS: DilTIAZem CD (24hr) 240 MG CAP.ER.24H PO SCH (21:49)
[2021-02-15 05:02] LABS: Basophils % 0.1 %; Eosinophils # 0.4 K/mcL (0.0-0.6); Eosinophils % 4.7 %; Hematocrit 30.9 % (35.3-44.9); Hemoglobin 9.1 g/dL (11.5-15.4); Immature Granulocytes % 0.2 % (0-4); Lymphocytes # 1.8 K/mcL (0.6-4.6); Lymphocytes % 22.5 %; Mean Corpuscular HGB Conc 29.4 g/dL (31.6-35.5); Mean Corpuscular Hemoglobin 22.3 pg (28.0-33.3); Mean Corpuscular Volume 75.7 fL (83.0-100.0); Mean Platelet Volume 9.7 fL (9.4-12.4); Monocytes # 0.9 K/mcL (0.0-1.3); Monocytes % 11.6 %; Platelet Count 315 K/mcL (140-400); Red Blood Count 4.08 M/mcL (3.82-4.97); Red Cell Distribution Width 17.6 % (11.5-14.5); Segmented Neutrophils % 60.9 %; White Blood Count 8.1 K/mcL (4.3-11.1)
[2021-02-15 05:06] LABS: INR 1.9; Prothrombin Time 22.1 Seconds (9.4-12.1)
[2021-02-15 05:08] LABS: Activated Partial Thrombo Time 34.4 Seconds (26.0-36.0)
[2021-02-15 05:20] LABS: Alanine Aminotransferase 7 Units/L (7-52); Albumin 3.6 g/dL (3.5-5.7); Albumin/Globulin Ratio 1.4 (1.1-2.2); Alkaline Phosphatase 72 Units/L (34-104); Aspartate Amino Transferase 5 Units/L (13-39); BUN/Creatinine Ratio 19 (6-26); Bilirubin,Total 0.9 mg/dL (0.3-1.0); Blood Urea Nitrogen 19 mg/dL (8-23); Calcium 8.8 mg/dL (8.6-10.3); Carbon Dioxide 34 mEq/L (23-29); Chloride 94 mEq/L (98-107); Globulin 2.5 g/dL (2.4-3.5); Glucose 130 mg/dL (70-105); Magnesium 1.8 mg/dL (1.6-2.6); Osmolality,Calculated 288 (280-300); Phosphorous 4.3 mg/dL (2.7-4.5); Potassium 3.7 mEq/L (3.5-5.1); Sodium 137 mEq/L (136-145); Total Protein 6.1 g/dL (6.4-8.9); eGFR For African Americans > 60 (> 60); eGFR For Non-African Americans 52 (> 60)
[2021-02-15] MEDS ORDERED: *HR* Enoxaparin 40 MG/0.4 ML SYRINGE SQ SCH ×2 (06:00)
[2021-02-15 08:24] LABS: Estimated Average Glucose 137 mg/dl; Hemoglobin A1C 6.4 %
[2021-02-15] MEDS ORDERED: lisinopriL 5 MG TABLET PO SCH (09:00)
[2021-02-15] MEDS: Insulin LISPRO 300 UNITS/3 ML VIAL SUBQ SCH ×4 (10:41→21:22)
[2021-02-15] MEDS: Aspirin Enteric Coated 81 MG Tablet PO SCH (10:46)
[2021-02-15] MEDS: *HR* Glimepiride 4 MG TABLET PO SCH ×3 (10:46→18:15)
[2021-02-15] MEDS: Isosorbide MONOnitrate (24 HR) 30 MG TAB.ER.24H PO SCH ×2 (10:46→21:47)
[2021-02-15] MEDS: Loratadine 10 MG TABLET PO SCH (10:47)
[2021-02-15] MEDS: Spironolactone 25 MG TABLET PO SCH (10:47)
[2021-02-15] MEDS: Furosemide 40 MG/4 ML VIAL IVP SCH ×2 (10:48→21:53)
[2021-02-15] MEDS: Apixaban 5 MG TABLET PO SCH ×2 (10:48→21:48)
[2021-02-15] MEDS: *HR* Metformin 500 MG TABLET PO SCH ×2 (10:48→18:14)
[2021-02-15] MEDS: DilTIAZem CD (24hr) 240 MG CAP.ER.24H PO SCH (21:47)
[2021-02-15] MEDS: Mirtazapine 15 MG TABLET PO PRN (21:53)
[2021-02-16] MEDS: Ondansetron 4 MG/2 ML VIAL IVP PRN ×2 (10:00→18:26)
[2021-02-16] MEDS: Aspirin Enteric Coated 81 MG Tablet PO SCH (10:02)
[2021-02-16] MEDS: Spironolactone 25 MG TABLET PO SCH (10:03)
[2021-02-16] MEDS: Apixaban 5 MG TABLET PO SCH ×2 (10:03→20:00)
[2021-02-16] MEDS: Isosorbide MONOnitrate (24 HR) 30 MG TAB.ER.24H PO SCH ×2 (10:03→20:01)
[2021-02-16] MEDS: Furosemide 40 MG/4 ML VIAL IVP SCH ×2 (10:03→20:02)
[2021-02-16] MEDS: *HR* Metformin 500 MG TABLET PO SCH ×2 (10:03→18:22)
[2021-02-16] MEDS: Loratadine 10 MG TABLET PO SCH (10:03)
[2021-02-16] MEDS: Insulin LISPRO 300 UNITS/3 ML VIAL SUBQ SCH ×4 (10:04→20:15)
[2021-02-16] MEDS: DilTIAZem CD (24hr) 240 MG CAP.ER.24H PO SCH (20:01)
[2021-02-16] MEDS: Mirtazapine 15 MG TABLET PO PRN (22:19)
[2021-02-17] MEDS: Furosemide 40 MG/4 ML VIAL IVP SCH (08:45)
[2021-02-17] MEDS: Apixaban 5 MG TABLET PO SCH (08:45)
[2021-02-17] MEDS: Insulin LISPRO 300 UNITS/3 ML VIAL SUBQ SCH ×2 (08:45→11:55)
[2021-02-17] MEDS: Aspirin Enteric Coated 81 MG Tablet PO SCH (08:46)
[2021-02-17] MEDS: Isosorbide MONOnitrate (24 HR) 30 MG TAB.ER.24H PO SCH (08:46)
[2021-02-17] MEDS: Spironolactone 25 MG TABLET PO SCH (08:46)
[2021-02-17] MEDS: Loratadine 10 MG TABLET PO SCH (08:46)
[2021-02-17] MEDS: *HR* Metformin 500 MG TABLET PO SCH (08:46)
[2021-02-17 11:49] VITALS: BP 132/68
== END 2021-02-17 13:51 | disposition home health service (06) ==
LOC: EMEROOGRE 12:20 → INPGRE 12:20
PROVIDERS: ADMIT Family Medicine; ATTEND Family Medicine

== ENCOUNTER 2021-08-29 08:37 | Inpatient (IN) ==
[2021-08-29] MEDS ORDERED: Dextrose Gel 15 GM/37.5 ML TUBE PO PRN ×2 (17:07)
[2021-08-29] MEDS ORDERED: *HR* Dextrose 50 % in Water (Syg) 50 ML SYRINGE IVP PRN (17:07)
[2021-08-29] MEDS ORDERED: D5% in Water 1,000 ML IVC PRN (17:07)
[2021-08-29] MEDS: DilTIAZem CD (24hr) 240 MG CAP.ER.24H PO SCH (18:41)
[2021-08-29] MEDS: *HR* Metformin 500 MG TABLET PO SCH (18:41)
[2021-08-29] MEDS: *HR* Glimepiride 4 MG TABLET PO SCH (18:41)
[2021-08-29] MEDS: Furosemide 40 MG TABLET PO SCH (18:41)
[2021-08-29] MEDS: *HR* OxyCODONE Immed Rel 5 MG TABLET PO PRN (18:42)
[2021-08-29] MEDS: Isosorbide MONOnitrate (24 HR) 30 MG TAB.ER.24H PO SCH (22:56)
[2021-08-29] MEDS: Apixaban 5 MG TABLET PO SCH (22:56)
[2021-08-29] MEDS: Mirtazapine 15 MG TABLET PO PRN (22:57)
[2021-08-29] MEDS: Acetaminophen 325 MG TABLET PO PRN (22:58)
[2021-08-29] MEDS: Insulin LISPRO 300 UNITS/3 ML VIAL SUBQ SCH (23:00)
[2021-08-30] MEDS: *HR* OxyCODONE Immed Rel 5 MG TABLET PO PRN ×2 (02:29→09:18)
[2021-08-30 05:12] LABS: Basophils % 0.2 %; Eosinophils # 0.6 K/mcL (0.0-0.6); Eosinophils % 6.1 %; Hematocrit 25.4 % (35.3-44.9); Hemoglobin 7.8 g/dL (11.5-15.4); Immature Granulocytes % 0.5 % (0-4); Lymphocytes # 2.4 K/mcL (0.6-4.6); Lymphocytes % 25.4 %; Mean Corpuscular HGB Conc 30.7 g/dL (31.6-35.5); Mean Corpuscular Hemoglobin 25.6 pg (28.0-33.3); Mean Corpuscular Volume 83.3 fL (83.0-100.0); Mean Platelet Volume 10.5 fL (9.4-12.4); Monocytes # 1.1 K/mcL (0.0-1.3); Neutrophils # 5.4 K/mcL (1.6-8.9); Platelet Count 315 K/mcL (140-400); Red Blood Count 3.05 M/mcL (3.82-4.97); Red Cell Distribution Width 15.1 % (11.5-14.5); Segmented Neutrophils % 56.8 %; White Blood Count 9.5 K/mcL (4.3-11.1)
[2021-08-30 05:23] LABS: Calcium 7.8 mg/dL (8.6-10.3); Potassium 3.6 mEq/L (3.5-5.1)
[2021-08-30] MEDS: Furosemide 40 MG TABLET PO SCH ×2 (07:00→17:02)
[2021-08-30] MEDS: Insulin LISPRO 300 UNITS/3 ML VIAL SUBQ SCH ×4 (09:17→19:57)
[2021-08-30] MEDS: polyethylene glycoL 3350 17 GM POWD.PACK PO SCH (09:17)
[2021-08-30] MEDS: Apixaban 5 MG TABLET PO SCH ×2 (09:18→19:57)
[2021-08-30] MEDS: *HR* Glimepiride 4 MG TABLET PO SCH ×2 (09:18→17:02)
[2021-08-30] MEDS: Isosorbide MONOnitrate (24 HR) 30 MG TAB.ER.24H PO SCH ×2 (09:18→19:57)
[2021-08-30] MEDS: Aspirin Enteric Coated 81 MG Tablet PO SCH (09:18)
[2021-08-30] MEDS: Loratadine 10 MG TABLET PO SCH (09:18)
[2021-08-30] MEDS: *HR* Metformin 500 MG TABLET PO SCH ×2 (09:19→17:02)
[2021-08-30] MEDS ORDERED: *HR* OxyCODONE/APAP 5/325 TABLET PO PRN (12:17)
[2021-08-30] MEDS: *HR* OxyCODONE/APAP 7.5/325 TABLET PO PRN ×3 (12:44→23:21)
[2021-08-30] MEDS: DilTIAZem CD (24hr) 240 MG CAP.ER.24H PO SCH (17:02)
[2021-08-31] MEDS: *HR* OxyCODONE/APAP 7.5/325 TABLET PO PRN ×2 (04:54→09:19)
[2021-08-31] MEDS: Furosemide 40 MG TABLET PO SCH ×2 (06:15→16:31)
[2021-08-31] MEDS: *HR* Metformin 500 MG TABLET PO SCH ×2 (09:18→16:31)
[2021-08-31] MEDS: Insulin LISPRO 300 UNITS/3 ML VIAL SUBQ SCH ×4 (09:18→21:31)
[2021-08-31] MEDS: Aspirin Enteric Coated 81 MG Tablet PO SCH (09:18)
[2021-08-31] MEDS: Apixaban 5 MG TABLET PO SCH ×2 (09:19→21:30)
[2021-08-31] MEDS: *HR* Glimepiride 4 MG TABLET PO SCH ×2 (09:19→16:31)
[2021-08-31] MEDS: Loratadine 10 MG TABLET PO SCH (09:19)
[2021-08-31] MEDS: Isosorbide MONOnitrate (24 HR) 30 MG TAB.ER.24H PO SCH ×2 (09:19→21:30)
[2021-08-31] MEDS: polyethylene glycoL 3350 17 GM POWD.PACK PO SCH (09:26)
[2021-08-31] MEDS: *HR* OxyCODONE/APAP 10/325 TABLET PO PRN (16:30)
[2021-08-31] MEDS: DilTIAZem CD (24hr) 240 MG CAP.ER.24H PO SCH (16:30)
[2021-08-31] MEDS: Sennosides/Docusate Sodium TABLET PO SCH (21:31)
[2021-08-31] MEDS: Mirtazapine 15 MG TABLET PO PRN (21:55)
[2021-09-01] MEDS: *HR* OxyCODONE/APAP 7.5/325 TABLET PO PRN ×4 (00:07→22:29)
[2021-09-01 06:21] LABS: Hematocrit 25.2 % (35.3-44.9); Hemoglobin 7.6 g/dL (11.5-15.4); Mean Corpuscular HGB Conc 30.2 g/dL (31.6-35.5); Mean Corpuscular Hemoglobin 24.9 pg (28.0-33.3); Mean Corpuscular Volume 82.6 fL (83.0-100.0); Mean Platelet Volume 10.2 fL (9.4-12.4); Platelet Count 383 K/mcL (140-400); Red Blood Count 3.05 M/mcL (3.82-4.97); Red Cell Distribution Width 15.3 % (11.5-14.5); White Blood Count 9.5 K/mcL (4.3-11.1)
[2021-09-01] MEDS: Furosemide 40 MG TABLET PO SCH ×2 (06:24→17:34)
[2021-09-01 06:42] LABS: Albumin 3.1 g/dL (3.5-5.7); Albumin/Globulin Ratio 1.3 (1.1-2.2); Bilirubin,Total 1.5 mg/dL (0.3-1.0); Globulin 2.3 g/dL (2.4-3.5); Magnesium 1.2 mg/dL (1.6-2.6); Potassium 3.3 mEq/L (3.5-5.1); Total Protein 5.4 g/dL (6.4-8.9)
[2021-09-01] MEDS: Loratadine 10 MG TABLET PO SCH (08:00)
[2021-09-01] MEDS: polyethylene glycoL 3350 17 GM POWD.PACK PO SCH (08:01)
[2021-09-01] MEDS: Apixaban 5 MG TABLET PO SCH ×2 (08:01→22:33)
[2021-09-01] MEDS: Isosorbide MONOnitrate (24 HR) 30 MG TAB.ER.24H PO SCH ×2 (08:01→22:33)
[2021-09-01] MEDS: Aspirin Enteric Coated 81 MG Tablet PO SCH (08:01)
[2021-09-01] MEDS: *HR* Metformin 500 MG TABLET PO SCH ×2 (08:01→17:34)
[2021-09-01] MEDS: Sennosides/Docusate Sodium TABLET PO SCH ×2 (08:01→22:33)
[2021-09-01] MEDS: *HR* Glimepiride 4 MG TABLET PO SCH ×2 (08:01→17:34)
[2021-09-01] MEDS: Insulin LISPRO 300 UNITS/3 ML VIAL SUBQ SCH ×4 (08:02→22:39)
[2021-09-01] MEDS: Vit C/E/Zn/Coppr/Lutein/Zeaxan [Preservision Areds 2] PO SCH ×2 (12:03→22:32)
[2021-09-01] MEDS: DilTIAZem CD (24hr) 240 MG CAP.ER.24H PO SCH (17:34)
[2021-09-01] MEDS: Mirtazapine 15 MG TABLET PO PRN (22:30)
[2021-09-02] MEDS: *HR* OxyCODONE/APAP 7.5/325 TABLET PO PRN ×4 (07:04→21:21)
[2021-09-02] MEDS: polyethylene glycoL 3350 17 GM POWD.PACK PO SCH (08:29)
[2021-09-02] MEDS: Insulin LISPRO 300 UNITS/3 ML VIAL SUBQ SCH ×4 (08:29→20:47)
[2021-09-02] MEDS: Sennosides/Docusate Sodium TABLET PO SCH ×2 (08:29→21:19)
[2021-09-02] MEDS: Isosorbide MONOnitrate (24 HR) 30 MG TAB.ER.24H PO SCH ×2 (08:30→21:21)
[2021-09-02] MEDS: Apixaban 5 MG TABLET PO SCH ×2 (08:30→21:19)
[2021-09-02] MEDS: Furosemide 40 MG TABLET PO SCH ×2 (08:30→17:26)
[2021-09-02] MEDS: *HR* Metformin 500 MG TABLET PO SCH ×2 (08:30→17:25)
[2021-09-02] MEDS: Aspirin Enteric Coated 81 MG Tablet PO SCH (08:31)
[2021-09-02] MEDS: *HR* Glimepiride 4 MG TABLET PO SCH ×2 (08:31→17:26)
[2021-09-02] MEDS: Loratadine 10 MG TABLET PO SCH (08:31)
[2021-09-02] MEDS: Vit C/E/Zn/Coppr/Lutein/Zeaxan [Preservision Areds 2] PO SCH ×2 (08:31→21:21)
[2021-09-02] MEDS: DilTIAZem CD (24hr) 240 MG CAP.ER.24H PO SCH (17:25)
[2021-09-02] MEDS: Doxycycline 100 MG CAPSULE PO SCH (21:20)
[2021-09-02] MEDS: Mirtazapine 15 MG TABLET PO PRN (21:20)
[2021-09-03] MEDS: *HR* OxyCODONE/APAP 7.5/325 TABLET PO PRN ×4 (02:01→21:39)
[2021-09-03] MEDS: Vit C/E/Zn/Coppr/Lutein/Zeaxan [Preservision Areds 2] PO SCH ×2 (08:23→21:41)
[2021-09-03] MEDS: Insulin LISPRO 300 UNITS/3 ML VIAL SUBQ SCH ×4 (08:23→21:40)
[2021-09-03] MEDS: Aspirin Enteric Coated 81 MG Tablet PO SCH (08:24)
[2021-09-03] MEDS: *HR* Glimepiride 4 MG TABLET PO SCH ×2 (08:24→16:59)
[2021-09-03] MEDS: Isosorbide MONOnitrate (24 HR) 30 MG TAB.ER.24H PO SCH ×2 (08:24→21:40)
[2021-09-03] MEDS: Furosemide 40 MG TABLET PO SCH ×2 (08:24→16:59)
[2021-09-03] MEDS: Doxycycline 100 MG CAPSULE PO SCH ×2 (08:24→21:40)
[2021-09-03] MEDS: Sennosides/Docusate Sodium TABLET PO SCH ×2 (08:24→21:39)
[2021-09-03] MEDS: Apixaban 5 MG TABLET PO SCH ×2 (08:25→21:40)
[2021-09-03] MEDS: *HR* Metformin 500 MG TABLET PO SCH ×2 (08:25→16:59)
[2021-09-03] MEDS: Loratadine 10 MG TABLET PO SCH (08:25)
[2021-09-03] MEDS: polyethylene glycoL 3350 17 GM POWD.PACK PO SCH (08:25)
[2021-09-03] MEDS: DilTIAZem CD (24hr) 240 MG CAP.ER.24H PO SCH (16:59)
[2021-09-04] MEDS: Furosemide 40 MG TABLET PO SCH ×2 (05:47→17:21)
[2021-09-04] MEDS: *HR* OxyCODONE/APAP 7.5/325 TABLET PO PRN ×3 (05:47→23:04)
[2021-09-04] MEDS: Aspirin Enteric Coated 81 MG Tablet PO SCH (09:25)
[2021-09-04] MEDS: *HR* Glimepiride 4 MG TABLET PO SCH ×2 (09:25→17:21)
[2021-09-04] MEDS: Loratadine 10 MG TABLET PO SCH (09:25)
[2021-09-04] MEDS: Sennosides/Docusate Sodium TABLET PO SCH ×2 (09:25→23:04)
[2021-09-04] MEDS: Doxycycline 100 MG CAPSULE PO SCH ×2 (09:25→23:05)
[2021-09-04] MEDS: *HR* Metformin 500 MG TABLET PO SCH ×2 (09:25→17:17)
[2021-09-04] MEDS: Apixaban 5 MG TABLET PO SCH ×2 (09:25→23:05)
[2021-09-04] MEDS: polyethylene glycoL 3350 17 GM POWD.PACK PO SCH (09:26)
[2021-09-04] MEDS: Isosorbide MONOnitrate (24 HR) 30 MG TAB.ER.24H PO SCH ×2 (09:26→23:04)
[2021-09-04] MEDS: Insulin LISPRO 300 UNITS/3 ML VIAL SUBQ SCH ×4 (09:36→23:05)
[2021-09-04] MEDS: Vit C/E/Zn/Coppr/Lutein/Zeaxan [Preservision Areds 2] PO SCH ×2 (09:39→23:06)
[2021-09-04] MEDS: Acetaminophen 325 MG TABLET PO PRN (13:52)
[2021-09-04] MEDS: Ondansetron ODT 4 MG TAB.RAPDIS SL PRN (16:33)
[2021-09-04] MEDS: DilTIAZem CD (24hr) 240 MG CAP.ER.24H PO SCH (17:21)
[2021-09-05 05:52] LABS: Hematocrit 25.7 % (35.3-44.9); Hemoglobin 7.7 g/dL (11.5-15.4); Mean Corpuscular Hemoglobin 24.7 pg (28.0-33.3); Mean Corpuscular Volume 82.4 fL (83.0-100.0); Mean Platelet Volume 9.8 fL (9.4-12.4); Platelet Count 488 K/mcL (140-400); Red Blood Count 3.12 M/mcL (3.82-4.97); Red Cell Distribution Width 15.5 % (11.5-14.5)
[2021-09-05 06:10] LABS: Albumin 3.2 g/dL (3.5-5.7); Albumin/Globulin Ratio 1.5 (1.1-2.2); Bilirubin,Total 0.8 mg/dL (0.3-1.0); Calcium 8.1 mg/dL (8.6-10.3); Globulin 2.1 g/dL (2.4-3.5); Magnesium 1.5 mg/dL (1.6-2.6); Potassium 4.4 mEq/L (3.5-5.1); Total Protein 5.3 g/dL (6.4-8.9)
[2021-09-05] MEDS: Furosemide 40 MG TABLET PO SCH ×2 (06:17→18:11)
[2021-09-05] MEDS: *HR* OxyCODONE/APAP 7.5/325 TABLET PO PRN ×3 (06:17→21:24)
[2021-09-05] MEDS: Apixaban 5 MG TABLET PO SCH ×2 (09:54→21:22)
[2021-09-05] MEDS: Loratadine 10 MG TABLET PO SCH (09:54)
[2021-09-05] MEDS: Aspirin Enteric Coated 81 MG Tablet PO SCH (09:54)
[2021-09-05] MEDS: Doxycycline 100 MG CAPSULE PO SCH ×2 (09:54→21:22)
[2021-09-05] MEDS: *HR* Glimepiride 4 MG TABLET PO SCH ×2 (09:54→18:12)
[2021-09-05] MEDS: Sennosides/Docusate Sodium TABLET PO SCH ×2 (09:54→21:24)
[2021-09-05] MEDS: Isosorbide MONOnitrate (24 HR) 30 MG TAB.ER.24H PO SCH ×2 (09:54→21:23)
[2021-09-05] MEDS: *HR* Metformin 500 MG TABLET PO SCH ×2 (09:54→18:11)
[2021-09-05] MEDS: Insulin LISPRO 300 UNITS/3 ML VIAL SUBQ SCH ×4 (10:18→21:23)
[2021-09-05] MEDS: polyethylene glycoL 3350 17 GM POWD.PACK PO SCH (10:24)
[2021-09-05] MEDS: Vit C/E/Zn/Coppr/Lutein/Zeaxan [Preservision Areds 2] PO SCH ×2 (10:37→21:24)
[2021-09-05] MEDS: Ondansetron 4 MG/2 ML VIAL IVP PRN (11:39)
[2021-09-05] MEDS: DilTIAZem CD (24hr) 240 MG CAP.ER.24H PO SCH (18:12)
[2021-09-05] MEDS: Mirtazapine 15 MG TABLET PO PRN (21:24)
[2021-09-06] MEDS: Furosemide 40 MG TABLET PO SCH ×2 (05:33→17:05)
[2021-09-06] MEDS: *HR* OxyCODONE/APAP 7.5/325 TABLET PO PRN ×3 (05:34→21:19)
[2021-09-06] MEDS: Doxycycline 100 MG CAPSULE PO SCH ×2 (07:42→21:19)
[2021-09-06] MEDS: Isosorbide MONOnitrate (24 HR) 30 MG TAB.ER.24H PO SCH ×2 (07:42→21:21)
[2021-09-06] MEDS: Ondansetron ODT 4 MG TAB.RAPDIS SL PRN ×2 (07:42→17:16)
[2021-09-06] MEDS: Sennosides/Docusate Sodium TABLET PO SCH ×2 (07:42→21:21)
[2021-09-06] MEDS: Aspirin Enteric Coated 81 MG Tablet PO SCH (07:42)
[2021-09-06] MEDS: *HR* Glimepiride 4 MG TABLET PO SCH ×2 (07:43→17:05)
[2021-09-06] MEDS: Apixaban 5 MG TABLET PO SCH ×2 (07:43→21:21)
[2021-09-06] MEDS: Loratadine 10 MG TABLET PO SCH (07:43)
[2021-09-06] MEDS: Insulin LISPRO 300 UNITS/3 ML VIAL SUBQ SCH ×4 (07:43→21:21)
[2021-09-06] MEDS: *HR* Metformin 500 MG TABLET PO SCH ×2 (07:43→17:05)
[2021-09-06] MEDS: Vit C/E/Zn/Coppr/Lutein/Zeaxan [Preservision Areds 2] PO SCH (07:44)
[2021-09-06] MEDS: polyethylene glycoL 3350 17 GM POWD.PACK PO SCH (07:44)
[2021-09-06] MEDS: DilTIAZem CD (24hr) 240 MG CAP.ER.24H PO SCH (17:05)
[2021-09-07] MEDS: Vit C/E/Zn/Coppr/Lutein/Zeaxan [Preservision Areds 2] PO SCH ×3 (00:17→20:39)
[2021-09-07 01:57] LABS: Influenza A PCR Negative (Negative); Influenza B PCR Negative (Negative); Resp. Syncytial Virus PCR Negative (Negative)
[2021-09-07 01:59] LABS: SARS-CoV-2 by PCR (In House) Negative (Negative)
[2021-09-07] MEDS: *HR* OxyCODONE/APAP 7.5/325 TABLET PO PRN ×3 (05:24→21:42)
[2021-09-07] MEDS: Furosemide 40 MG TABLET PO SCH ×2 (05:25→16:10)
[2021-09-07] MEDS: Sennosides/Docusate Sodium TABLET PO SCH ×2 (09:00→20:36)
[2021-09-07] MEDS: Aspirin Enteric Coated 81 MG Tablet PO SCH (09:00)
[2021-09-07] MEDS: Doxycycline 100 MG CAPSULE PO SCH ×2 (09:01→20:36)
[2021-09-07] MEDS: *HR* Glimepiride 4 MG TABLET PO SCH ×2 (09:01→16:10)
[2021-09-07] MEDS: *HR* Metformin 500 MG TABLET PO SCH ×2 (09:01→16:09)
[2021-09-07] MEDS: Loratadine 10 MG TABLET PO SCH (09:01)
[2021-09-07] MEDS: Isosorbide MONOnitrate (24 HR) 30 MG TAB.ER.24H PO SCH ×2 (09:01→20:36)
[2021-09-07] MEDS: Insulin LISPRO 300 UNITS/3 ML VIAL SUBQ SCH ×4 (09:01→20:12)
[2021-09-07] MEDS: Apixaban 5 MG TABLET PO SCH ×2 (09:01→20:36)
[2021-09-07] MEDS: polyethylene glycoL 3350 17 GM POWD.PACK PO SCH (09:02)
[2021-09-07] MEDS: Ondansetron 4 MG/2 ML VIAL IVP PRN (09:10)
[2021-09-07] MEDS: Ondansetron ODT 4 MG TAB.RAPDIS SL PRN (12:57)
[2021-09-07] MEDS: DilTIAZem CD (24hr) 240 MG CAP.ER.24H PO SCH (16:10)
[2021-09-08 06:20] LABS: Basophils % 0.3 %; Eosinophils # 0.5 K/mcL (0.0-0.6); Eosinophils % 5.1 %; Hematocrit 25.1 % (35.3-44.9); Hemoglobin 7.6 g/dL (11.5-15.4); Immature Granulocytes % 0.8 % (0-4); Lymphocytes # 3.4 K/mcL (0.6-4.6); Lymphocytes % 32.3 %; Mean Corpuscular HGB Conc 30.3 g/dL (31.6-35.5); Mean Corpuscular Hemoglobin 24.8 pg (28.0-33.3); Mean Corpuscular Volume 81.8 fL (83.0-100.0); Mean Platelet Volume 9.8 fL (9.4-12.4); Neutrophils # 5.6 K/mcL (1.6-8.9); Platelet Count 541 K/mcL (140-400); Red Blood Count 3.07 M/mcL (3.82-4.97); Red Cell Distribution Width 15.3 % (11.5-14.5); Segmented Neutrophils % 52.5 %; White Blood Count 10.7 K/mcL (4.3-11.1)
[2021-09-08 06:53] LABS: Albumin 3.2 g/dL (3.5-5.7); Albumin/Globulin Ratio 1.2 (1.1-2.2); Bilirubin,Total 1.1 mg/dL (0.3-1.0); Calcium 8.5 mg/dL (8.6-10.3); Globulin 2.6 g/dL (2.4-3.5); Magnesium 1.6 mg/dL (1.6-2.6); Potassium 3.8 mEq/L (3.5-5.1); Total Protein 5.8 g/dL (6.4-8.9)
[2021-09-08] MEDS: Insulin LISPRO 300 UNITS/3 ML VIAL SUBQ SCH ×4 (07:43→19:56)
[2021-09-08] MEDS: Doxycycline 100 MG CAPSULE PO SCH (07:44)
[2021-09-08] MEDS: *HR* Glimepiride 4 MG TABLET PO SCH ×2 (07:44→18:08)
[2021-09-08] MEDS: Loratadine 10 MG TABLET PO SCH (07:44)
[2021-09-08] MEDS: Furosemide 40 MG TABLET PO SCH ×2 (07:44→14:03)
[2021-09-08] MEDS: Aspirin Enteric Coated 81 MG Tablet PO SCH (07:45)
[2021-09-08] MEDS: Apixaban 5 MG TABLET PO SCH ×2 (07:45→19:53)
[2021-09-08] MEDS: *HR* OxyCODONE/APAP 7.5/325 TABLET PO PRN (07:45)
[2021-09-08] MEDS: *HR* Metformin 500 MG TABLET PO SCH ×2 (07:46→07:52)
[2021-09-08] MEDS: Vit C/E/Zn/Coppr/Lutein/Zeaxan [Preservision Areds 2] PO SCH ×2 (07:46→19:54)
[2021-09-08] MEDS: polyethylene glycoL 3350 17 GM POWD.PACK PO SCH (07:46)
[2021-09-08] MEDS: Isosorbide MONOnitrate (24 HR) 30 MG TAB.ER.24H PO SCH ×2 (07:46→19:53)
[2021-09-08] MEDS: Sennosides/Docusate Sodium TABLET PO SCH ×2 (07:46→19:54)
[2021-09-08] MEDS: *HR* OxyCODONE/APAP 10/325 TABLET PO PRN ×2 (14:03→18:09)
[2021-09-08] MEDS: DilTIAZem CD (24hr) 240 MG CAP.ER.24H PO SCH (18:14)
[2021-09-08] MEDS: cephALEXin 500 MG CAPSULE PO SCH (20:25)
[2021-09-09] MEDS: *HR* OxyCODONE/APAP 7.5/325 TABLET PO PRN ×2 (00:54→05:59)
[2021-09-09] MEDS: Loratadine 10 MG TABLET PO SCH (08:57)
[2021-09-09] MEDS: Furosemide 40 MG TABLET PO SCH ×2 (08:57→18:22)
[2021-09-09] MEDS: *HR* Glimepiride 4 MG TABLET PO SCH ×2 (08:57→18:22)
[2021-09-09] MEDS: Sennosides/Docusate Sodium TABLET PO SCH ×2 (08:57→19:57)
[2021-09-09] MEDS: cephALEXin 500 MG CAPSULE PO SCH ×4 (08:57→19:58)
[2021-09-09] MEDS: Isosorbide MONOnitrate (24 HR) 30 MG TAB.ER.24H PO SCH ×2 (08:57→19:57)
[2021-09-09] MEDS: Aspirin Enteric Coated 81 MG Tablet PO SCH (08:57)
[2021-09-09] MEDS: polyethylene glycoL 3350 17 GM POWD.PACK PO SCH (08:58)
[2021-09-09] MEDS: Insulin LISPRO 300 UNITS/3 ML VIAL SUBQ SCH ×4 (08:58→19:59)
[2021-09-09] MEDS: Apixaban 5 MG TABLET PO SCH ×2 (08:58→19:57)
[2021-09-09] MEDS: Vit C/E/Zn/Coppr/Lutein/Zeaxan [Preservision Areds 2] PO SCH ×2 (08:58→19:58)
[2021-09-09] MEDS: *HR* OxyCODONE/APAP 10/325 TABLET PO PRN ×2 (11:12→18:21)
[2021-09-09] MEDS: DilTIAZem CD (24hr) 240 MG CAP.ER.24H PO SCH (18:22)
[2021-09-10] MEDS: *HR* OxyCODONE/APAP 7.5/325 TABLET PO PRN ×5 (04:33→22:37)
[2021-09-10] MEDS: polyethylene glycoL 3350 17 GM POWD.PACK PO SCH (09:36)
[2021-09-10] MEDS: Insulin LISPRO 300 UNITS/3 ML VIAL SUBQ SCH ×4 (09:36→20:47)
[2021-09-10] MEDS: cephALEXin 500 MG CAPSULE PO SCH ×4 (09:36→20:48)
[2021-09-10] MEDS: *HR* Glimepiride 4 MG TABLET PO SCH ×2 (09:37→17:06)
[2021-09-10] MEDS: Isosorbide MONOnitrate (24 HR) 30 MG TAB.ER.24H PO SCH ×2 (09:37→20:47)
[2021-09-10] MEDS: Aspirin Enteric Coated 81 MG Tablet PO SCH (09:37)
[2021-09-10] MEDS: Apixaban 5 MG TABLET PO SCH ×2 (09:37→20:47)
[2021-09-10] MEDS: Sennosides/Docusate Sodium TABLET PO SCH ×2 (09:37→20:48)
[2021-09-10] MEDS: Furosemide 40 MG TABLET PO SCH ×2 (09:37→17:06)
[2021-09-10] MEDS: Loratadine 10 MG TABLET PO SCH (09:38)
[2021-09-10] MEDS: Vit C/E/Zn/Coppr/Lutein/Zeaxan [Preservision Areds 2] PO SCH ×2 (09:38→20:48)
[2021-09-10] MEDS: DilTIAZem CD (24hr) 240 MG CAP.ER.24H PO SCH (17:06)
[2021-09-11 04:48] LABS: Hemoglobin 7.8 g/dL (11.5-15.4); Mean Corpuscular Hemoglobin 24.2 pg (28.0-33.3); Mean Corpuscular Volume 80.7 fL (83.0-100.0); Mean Platelet Volume 9.4 fL (9.4-12.4); Platelet Count 536 K/mcL (140-400); Red Blood Count 3.22 M/mcL (3.82-4.97); Red Cell Distribution Width 15.4 % (11.5-14.5); White Blood Count 10.8 K/mcL (4.3-11.1)
[2021-09-11 05:03] LABS: Albumin 3.2 g/dL (3.5-5.7); Albumin/Globulin Ratio 1.3 (1.1-2.2); Bilirubin,Total 0.7 mg/dL (0.3-1.0); Calcium 8.1 mg/dL (8.6-10.3); Globulin 2.4 g/dL (2.4-3.5); Magnesium 1.5 mg/dL (1.6-2.6); Potassium 4.2 mEq/L (3.5-5.1); Total Protein 5.6 g/dL (6.4-8.9)
[2021-09-11] MEDS: Furosemide 40 MG TABLET PO SCH ×2 (06:12→14:55)
[2021-09-11] MEDS: Insulin LISPRO 300 UNITS/3 ML VIAL SUBQ SCH ×4 (07:25→20:48)
[2021-09-11] MEDS: cephALEXin 500 MG CAPSULE PO SCH ×2 (07:26→12:24)
[2021-09-11] MEDS: Aspirin Enteric Coated 81 MG Tablet PO SCH (07:26)
[2021-09-11] MEDS: Apixaban 5 MG TABLET PO SCH ×2 (07:26→20:35)
[2021-09-11] MEDS: *HR* OxyCODONE/APAP 10/325 TABLET PO PRN ×4 (07:27→21:30)
[2021-09-11] MEDS: Loratadine 10 MG TABLET PO SCH (07:27)
[2021-09-11] MEDS: Sennosides/Docusate Sodium TABLET PO SCH ×2 (07:28→20:36)
[2021-09-11] MEDS: polyethylene glycoL 3350 17 GM POWD.PACK PO SCH (07:28)
[2021-09-11] MEDS: Isosorbide MONOnitrate (24 HR) 30 MG TAB.ER.24H PO SCH ×2 (07:28→20:35)
[2021-09-11] MEDS: *HR* Glimepiride 4 MG TABLET PO SCH ×2 (07:28→14:55)
[2021-09-11] MEDS: Vit C/E/Zn/Coppr/Lutein/Zeaxan [Preservision Areds 2] PO SCH ×2 (12:35→20:35)
[2021-09-11] MEDS: DilTIAZem CD (24hr) 240 MG CAP.ER.24H PO SCH (14:55)
[2021-09-11] MEDS: ceFAZolin 2,000 MG in 0.9 % Sodium Chloride 100 ML IVPB SCH (17:05)
[2021-09-11] MEDS: Mirtazapine 15 MG TABLET PO PRN (20:36)
[2021-09-12] MEDS: ceFAZolin 2,000 MG in 0.9 % Sodium Chloride 100 ML IVPB SCH ×3 (00:40→17:24)
[2021-09-12] MEDS: Furosemide 40 MG TABLET PO SCH ×2 (06:46→15:29)
[2021-09-12] MEDS: Insulin LISPRO 300 UNITS/3 ML VIAL SUBQ SCH ×4 (08:04→19:38)
[2021-09-12] MEDS: polyethylene glycoL 3350 17 GM POWD.PACK PO SCH (08:05)
[2021-09-12] MEDS: Apixaban 5 MG TABLET PO SCH ×2 (08:06→20:27)
[2021-09-12] MEDS: Isosorbide MONOnitrate (24 HR) 30 MG TAB.ER.24H PO SCH ×2 (08:06→20:27)
[2021-09-12] MEDS: *HR* Glimepiride 4 MG TABLET PO SCH ×2 (08:06→17:19)
[2021-09-12] MEDS: Aspirin Enteric Coated 81 MG Tablet PO SCH (08:06)
[2021-09-12] MEDS: Sennosides/Docusate Sodium TABLET PO SCH ×2 (08:06→20:28)
[2021-09-12] MEDS: *HR* OxyCODONE/APAP 10/325 TABLET PO PRN ×2 (08:07→20:27)
[2021-09-12] MEDS: Loratadine 10 MG TABLET PO SCH (08:07)
[2021-09-12] MEDS: Vit C/E/Zn/Coppr/Lutein/Zeaxan [Preservision Areds 2] PO SCH ×2 (11:18→23:55)
[2021-09-12] MEDS: DilTIAZem CD (24hr) 240 MG CAP.ER.24H PO SCH (17:19)
[2021-09-13] MEDS: ceFAZolin 2,000 MG in 0.9 % Sodium Chloride 100 ML IVPB SCH ×3 (00:18→17:33)
[2021-09-13] MEDS: Furosemide 40 MG TABLET PO SCH ×2 (06:00→17:31)
[2021-09-13] MEDS: Sennosides/Docusate Sodium TABLET PO SCH ×2 (08:04→20:17)
[2021-09-13] MEDS: Aspirin Enteric Coated 81 MG Tablet PO SCH (08:04)
[2021-09-13] MEDS: *HR* Glimepiride 4 MG TABLET PO SCH ×2 (08:05→17:31)
[2021-09-13] MEDS: Apixaban 5 MG TABLET PO SCH ×2 (08:05→20:17)
[2021-09-13] MEDS: Isosorbide MONOnitrate (24 HR) 30 MG TAB.ER.24H PO SCH ×2 (08:05→20:17)
[2021-09-13] MEDS: Loratadine 10 MG TABLET PO SCH (08:06)
[2021-09-13] MEDS: Insulin LISPRO 300 UNITS/3 ML VIAL SUBQ SCH ×4 (08:07→20:07)
[2021-09-13] MEDS: Vit C/E/Zn/Coppr/Lutein/Zeaxan [Preservision Areds 2] PO SCH ×2 (08:09→20:21)
[2021-09-13] MEDS: polyethylene glycoL 3350 17 GM POWD.PACK PO SCH (08:12)
[2021-09-13] MEDS: Ondansetron ODT 4 MG TAB.RAPDIS SL PRN (08:23)
[2021-09-13] MEDS: *HR* OxyCODONE/APAP 7.5/325 TABLET PO PRN ×2 (08:23→17:37)
[2021-09-13] MEDS: *HR* OxyCODONE/APAP 10/325 TABLET PO PRN ×2 (11:47→20:18)
[2021-09-13] MEDS: DilTIAZem CD (24hr) 240 MG CAP.ER.24H PO SCH (17:31)
[2021-09-14] MEDS: ceFAZolin 2,000 MG in 0.9 % Sodium Chloride 100 ML IVPB SCH ×3 (00:26→17:08)
[2021-09-14] MEDS: *HR* OxyCODONE/APAP 7.5/325 TABLET PO PRN ×4 (00:37→20:26)
[2021-09-14] MEDS: Mirtazapine 15 MG TABLET PO PRN ×2 (00:37→20:26)
[2021-09-14 05:37] LABS: Hematocrit 25.6 % (35.3-44.9); Hemoglobin 7.6 g/dL (11.5-15.4); Mean Corpuscular HGB Conc 29.7 g/dL (31.6-35.5); Mean Corpuscular Hemoglobin 24.1 pg (28.0-33.3); Mean Corpuscular Volume 81.3 fL (83.0-100.0); Platelet Count 493 K/mcL (140-400); Red Blood Count 3.15 M/mcL (3.82-4.97); Red Cell Distribution Width 15.4 % (11.5-14.5)
[2021-09-14 06:01] LABS: Albumin 3.1 g/dL (3.5-5.7); Albumin/Globulin Ratio 1.3 (1.1-2.2); Bilirubin,Total 0.4 mg/dL (0.3-1.0); Calcium 7.8 mg/dL (8.6-10.3); Globulin 2.3 g/dL (2.4-3.5); Magnesium 1.6 mg/dL (1.6-2.6); Potassium 4.1 mEq/L (3.5-5.1); Total Protein 5.4 g/dL (6.4-8.9)
[2021-09-14] MEDS: Insulin LISPRO 300 UNITS/3 ML VIAL SUBQ SCH ×4 (08:20→20:27)
[2021-09-14] MEDS: Apixaban 5 MG TABLET PO SCH ×2 (08:34→20:25)
[2021-09-14] MEDS: Aspirin Enteric Coated 81 MG Tablet PO SCH (08:34)
[2021-09-14] MEDS: Loratadine 10 MG TABLET PO SCH (08:34)
[2021-09-14] MEDS: Isosorbide MONOnitrate (24 HR) 30 MG TAB.ER.24H PO SCH ×2 (08:35→20:25)
[2021-09-14] MEDS: Furosemide 40 MG TABLET PO SCH ×2 (08:35→17:08)
[2021-09-14] MEDS: polyethylene glycoL 3350 17 GM POWD.PACK PO SCH (08:36)
[2021-09-14] MEDS: *HR* Glimepiride 4 MG TABLET PO SCH ×2 (08:36→17:08)
[2021-09-14] MEDS: Sennosides/Docusate Sodium TABLET PO SCH ×2 (08:36→20:25)
[2021-09-14] MEDS: Vit C/E/Zn/Coppr/Lutein/Zeaxan [Preservision Areds 2] PO SCH ×2 (08:37→20:25)
[2021-09-14] MEDS: *HR* OxyCODONE/APAP 10/325 TABLET PO PRN (12:52)
[2021-09-14] MEDS: DilTIAZem CD (24hr) 240 MG CAP.ER.24H PO SCH (17:08)
[2021-09-15] MEDS: ceFAZolin 2,000 MG in 0.9 % Sodium Chloride 100 ML IVPB SCH ×3 (00:40→17:05)
[2021-09-15] MEDS: Furosemide 40 MG TABLET PO SCH ×2 (05:40→17:04)
[2021-09-15] MEDS: *HR* OxyCODONE/APAP 7.5/325 TABLET PO PRN ×3 (06:52→20:20)
[2021-09-15] MEDS: Loratadine 10 MG TABLET PO SCH (07:45)
[2021-09-15] MEDS: *HR* Glimepiride 4 MG TABLET PO SCH ×2 (07:46→17:04)
[2021-09-15] MEDS: Aspirin Enteric Coated 81 MG Tablet PO SCH (07:47)
[2021-09-15] MEDS: Isosorbide MONOnitrate (24 HR) 30 MG TAB.ER.24H PO SCH ×2 (07:47→20:19)
[2021-09-15] MEDS: polyethylene glycoL 3350 17 GM POWD.PACK PO SCH (07:47)
[2021-09-15] MEDS: Apixaban 5 MG TABLET PO SCH ×2 (07:47→20:18)
[2021-09-15] MEDS: Insulin LISPRO 300 UNITS/3 ML VIAL SUBQ SCH ×4 (07:52→20:18)
[2021-09-15] MEDS: Sennosides/Docusate Sodium TABLET PO SCH ×2 (07:53→20:20)
[2021-09-15] MEDS: Vit C/E/Zn/Coppr/Lutein/Zeaxan [Preservision Areds 2] PO SCH ×2 (07:53→20:20)
[2021-09-15] MEDS: DilTIAZem CD (24hr) 240 MG CAP.ER.24H PO SCH (17:04)
[2021-09-15] MEDS: Mirtazapine 15 MG TABLET PO PRN (20:20)
[2021-09-16] MEDS: ceFAZolin 2,000 MG in 0.9 % Sodium Chloride 100 ML IVPB SCH ×3 (01:00→17:33)
[2021-09-16] MEDS: Furosemide 40 MG TABLET PO SCH ×2 (06:14→16:18)
[2021-09-16] MEDS: Insulin LISPRO 300 UNITS/3 ML VIAL SUBQ SCH ×4 (08:19→19:47)
[2021-09-16] MEDS: Sennosides/Docusate Sodium TABLET PO SCH ×2 (08:20→19:47)
[2021-09-16] MEDS: Apixaban 5 MG TABLET PO SCH ×2 (08:20→19:46)
[2021-09-16] MEDS: *HR* Glimepiride 4 MG TABLET PO SCH ×2 (08:20→16:18)
[2021-09-16] MEDS: Vit C/E/Zn/Coppr/Lutein/Zeaxan [Preservision Areds 2] PO SCH ×2 (08:21→19:47)
[2021-09-16] MEDS: Aspirin Enteric Coated 81 MG Tablet PO SCH (08:21)
[2021-09-16] MEDS: *HR* OxyCODONE/APAP 7.5/325 TABLET PO PRN (08:21)
[2021-09-16] MEDS: polyethylene glycoL 3350 17 GM POWD.PACK PO SCH (08:21)
[2021-09-16] MEDS: Isosorbide MONOnitrate (24 HR) 30 MG TAB.ER.24H PO SCH ×2 (08:21→19:46)
[2021-09-16] MEDS: Loratadine 10 MG TABLET PO SCH (08:21)
[2021-09-16] MEDS: *HR* OxyCODONE/APAP 10/325 TABLET PO PRN ×2 (13:05→20:56)
[2021-09-16] MEDS: DilTIAZem CD (24hr) 240 MG CAP.ER.24H PO SCH (16:19)
[2021-09-16] MEDS: Mirtazapine 15 MG TABLET PO PRN (20:57)
[2021-09-17] MEDS: ceFAZolin 2,000 MG in 0.9 % Sodium Chloride 100 ML IVPB SCH ×2 (00:29→08:04)
[2021-09-17] MEDS: Furosemide 40 MG TABLET PO SCH (05:54)
[2021-09-17] MEDS: Sennosides/Docusate Sodium TABLET PO SCH (07:34)
[2021-09-17] MEDS: polyethylene glycoL 3350 17 GM POWD.PACK PO SCH (07:34)
[2021-09-17 07:35] VITALS: BP 131/72; PULSE 61; RESP 16; TEMP 97.9; O2SAT 96
[2021-09-17] MEDS: Aspirin Enteric Coated 81 MG Tablet PO SCH (07:46)
[2021-09-17] MEDS: Apixaban 5 MG TABLET PO SCH (07:47)
[2021-09-17] MEDS: *HR* OxyCODONE/APAP 7.5/325 TABLET PO PRN (07:48)
[2021-09-17] MEDS: Isosorbide MONOnitrate (24 HR) 30 MG TAB.ER.24H PO SCH (07:49)
[2021-09-17] MEDS: Loratadine 10 MG TABLET PO SCH (07:49)
[2021-09-17] MEDS: Insulin LISPRO 300 UNITS/3 ML VIAL SUBQ SCH (07:50)
[2021-09-17] MEDS: *HR* Glimepiride 4 MG TABLET PO SCH (07:54)
[2021-09-17] MEDS: Vit C/E/Zn/Coppr/Lutein/Zeaxan [Preservision Areds 2] PO SCH (07:58)
[2021-09-17] MEDS ORDERED: cephALEXin 500 MG CAPSULE PO SCH (15:00)
== END 2021-09-17 14:08 | disposition home health service (06) | DRG 560 ==
LOC: INPGRE 15:13
PROVIDERS: ADMIT Family Medicine; ATTEND Family Medicine